=== PATIENT | male | born 1990 | race African-American/Black ===

== ENCOUNTER 2023-09-19 21:01 | Emergency (ER) | payer OTHER ==
[~2023-09-19] VITALS: Ht 175.3 cm; Wt 109.2 kg
[2023-09-19] MEDS: NS 1,000 ML IV ONE (23:54)
[2023-09-19] MEDS: METOCLOPRAMIDE INJ 10MG/2ML VIAL IV ONE (23:55)
[2023-09-19] MEDS: KETOROLAC 30 MG/ML 1ML VIAL IV ONE (23:56)
[2023-09-20 00:27] LABS: ALBUMIN 4.1 G/DL (3.2-5.2); ALKALINE PHOSPHATASE 51 U/L (46-116); ALT/SGPT 34 U/L (7.0-40); AST/SGOT 27 U/L (<34); BILIRUBIN,DIRECT 0.2 MG/DL (<0.4); BILIRUBIN,TOTAL 0.8 MG/DL (0.3-1.2); BLOOD UREA NITROGEN 11 MG/DL (9-23); CALCIUM LEVEL 9.8 MG/DL (8.5-10.1); CARBON DIOXIDE LEVEL 28 MMOL/L (20-31); CHLORIDE LEVEL 103 MMOL/L (98-107); CREATININE FOR GFR 1.07 MG/DL (0.70-1.30); GLOMERULAR FILTRATION RATE > 60.0 (>60); GLUCOSE, FASTING 94 MG/DL (60-100); HEMATOCRIT 46.5 % (42.0-52.0); HEMOGLOBIN 14.6 g/dl (13.5-17.5); MEAN CORPUSCULAR HEMOGLOBIN 23.3 pg (27.0-33.0); MEAN CORPUSCULAR HGB CONC 31.4 g/dl (32.0-36.5); MEAN CORPUSCULAR VOLUME 74.3 fl (80.0-96.0); PLATELET COUNT, AUTOMATED 214 10^3/uL (150-450); POTASSIUM SERUM 4.4 MMOL/L (3.5-5.1); RED BLOOD COUNT 6.26 10^6/uL (4.30-6.10); SODIUM LEVEL 137 MMOL/L (136-145); TOTAL PROTEIN 7.6 G/DL (5.7-8.2); WHITE BLOOD COUNT 9.2 10^3/uL (4.0-10.0)
[2023-09-20] MEDS ORDERED: ONDA4TAB6 PO (00:52)
[2023-09-20 01:02] VITALS: BP 131/79; TEMP 97.9; O2SAT 99
== END 2023-09-20 01:26 | disposition home or self-care (01) ==
LOC: M ED 21:01
DX: G43.909 Migraine, unspecified, not intractable, without status migrainosus (principal); Z79.899 Other long term (current) drug therapy
CPT/HCPCS: 80048; 80076; 85027; 87486; 87581; 87633; 87798; 96361; 96374; 96375; 99283; J1885; J2765